=== PATIENT | female | born 1945 | race African-American/Black ===

== ENCOUNTER → 2016-07-25 | Day surgery (SDC) | payer MEDICARE, OTHER ==
[2016-07-25] VITALS (14 sets, daily range): BP systolic 114–164; BP diastolic 72–90
[~2016-07-25] VITALS: Ht 166.4 cm; Wt 88.5 kg
[~2016-07-25] MED LIST: AMLODIPINE BESY10 MG ORAL; BSS 15ml BTL ONE; BSS 500ml btl ONE; Dexamethasone 4mg/ml vial ONE; EPINEPHrine 1mg/1ml Amp ONE; Hydromorphone 0.5mg/0.5ml inj IVP PRN; KEPPRA500 M3 ORAL; LASIX20 M1 ORAL; LISINOPRIL-HCT1 EAC2 PO; LISINOPRIL20 MG ORAL; LOPRESSOR25 M1 ORAL; Lidocaine 1% MPF 10mg/ml 5ml ONE; METOPROLOL TART25 MG PO; METRONIDAZOLE500 MG ORAL; MULTIVITAMINS1 EAC2 ORAL; Midazolam 2mg/2ml Inj ONE; NORVASC10 MG ORAL; NS Irrig 1000ml ONE; PRINIVIL20 MG ORAL; Povidone-Iodine 5% opth solution ONE; Sodium Hyaluronate 14 mg/ml 0.85ml ONE; Sterile Water Irrig 1000ml IRRIG ONE; TRAMADOL HCL50 MG ORAL; fentaNYL 100 mcg/2 mL IV ONE
[2016-07-25] MEDS: Tropicamide 1% Opth Soln RIGHT EYE SCH ×3 (07:14→07:42)
[2016-07-25] MEDS: Phenylephrine 2.5% Op Soln RIGHT EYE SCH ×3 (07:15→07:42)
[2016-07-25] MEDS: Tobradex Opth Susp 2.5ml RIGHT EYE SCH ×3 (07:16→07:42)
[2016-07-25] MEDS: Gatifloxacin Opth Solution 0.5% RIGHT EYE SCH ×3 (07:17→07:43)
[2016-07-25] MEDS: Akten 3.5% 1ml Btl RIGHT EYE SCH ×3 (07:17→07:43)
--- NOTE | 2016-07-25 07:35 | Pre-Procedure Note/Attestation ---
Pre-Procedure Note/Attestation Complete Prior to Procedure Planned Procedure: right Procedure Narrative: cataract extraction with implant right eye Indications for Procedure Pre-Operative Diagnosis: cataract right eye Attestation I attest that I discussed the nature of the procedure; its benefits; risks and complications; and alternatives (and the risks and benefits of such alternatives ), prior to the procedure, with the patient (or the patient's legal licensing representative). I attest that, if there was a reasonable possibility of needing a blood transfusion, the patient (or the patient's legal licensing representative) was given the [facility] standardized written summary, pursuant to the [place] Blood Safety Act ([place] Health and Safety Code # 1645, as amended). I attest that I re-evaluated the patient just prior to the surgery and that there has been no change in the patient's H&P, except as documented below: IAN RICH Jul 25, 2016 07:35
--- NOTE | 2016-07-25 08:38 | Anethesia Preoperative Eval ---
Anesthesia Pre-op PMH/ROS General Date of Evaluation: Jul 25, 2016 Time of Evaluation: 08:15 Anesthesiologist: ANIA ASA Score: ASA 2 Mallampati Score Class I : Soft palate, uvula, fauces, pillars visible Class II: Soft palate, uvula, fauces visible Class III: Soft palate, base of uvula visible Class IV: Only hard plate visible Mallampati Classification: Class II Surgeon: LAYLA Diagnosis: CATARACT R Surgical Procedure: REMOVAL CATARACT LENS IMPLANT Anesthesia History: none Family History: no anesthesia problems Allergies: Coded Allergies: CODEINE (Verified Allergy, Mild, 02/10/10) IBUPROFEN (Verified Allergy, Mild, Rash, 03/04/12) ASPIRIN (Unverified Adverse Reaction, Unknown, 02/12/14) Uncoded Allergies: FISH (Allergy, Unknown, Shortness of Breath, , 02/12/14) SOB,HIVES Past Medical History Cardiovascular: Reports: HTN Pulmonary: Denies: COPD, SANTOS, asthma, other Gastrointestinal/Genitourinary: Denies: CRI, ESRD, GERD, other Neurologic/Psychiatric: Denies: CVA, TIA, dementia, depression/anxiety, other Endocrine: Denies: DM, hypothyroidism, other, steroids HEENT: Reports: cataract (L), cataract (R) Hematology/Immune: Denies: DVT, anemia, bleeding disorder, other Musculoskeletal/Integumentary: Denies: DDD, DJD, OA, RA, edema, other Anesthesia Pre-op Phys. Exam Physician Exam Last Vital Signs Date Time Temp Pulse Resp B/P Pulse Ox O2 Delivery O2 Flow Rate FiO2 07/25/16 07:27 97.6 67 18 147/76 97 Room Air Constitutional: NAD Neurologic: CN 2-12 intact Cardiovascular: RRR Respiratory: CTA Gastrointestinal: S/NT/ND Airway Exam Mallampati Score: Class II MO: full ROM: full Teeth: intact Dentures: no lower, no upper Anesthesia Pre-op A/P Risk Assessment & Plan Assessment: ASA2 Plan: MAC Status Change Before Surgery: No Pre-Antibiotics Given Within 1 Hr of Incision: NAVIN Burr M.D. Jul 25, 2016 08:38
--- NOTE | 2016-07-25 08:39 | Immediate Post-Op Evaluation ---
Immediate Post-Op Evalulation Immediate Post-Op Evalulation Procedure: CATARACT REMOVAL LENS IMPLANT Date of Evaluation: Jul 25, 2016 Time of Evaluation: 09:00 IV Fluids: 250 Blood Products: 0 Estimated Blood Loss: 0 Urinary Output: 0 Blood Pressure Systolic: 121 Blood Pressure Diastolic: 76 Pulse Rate: 82 Respiratory Rate: 15 O2 Sat by Pulse Oximetry: 99 Temperature (Fahrenheit): 98 Pain Score (1-10): 0 Nausea: No Vomiting: No Complications 0 Patient Status: awake, patent, none Hydration Status: adequate Given Within 1 Hr of Incision: NAVIN Burr M.D. Jul 25, 2016 08:39
--- NOTE | 2016-07-25 08:40 | 48 Hour Post Anesthesia Eval ---
Post Anesthesia Evaluation Procedure: CATARACT REMOVAL LENS IMPLANT R Date of Evaluation: Jul 25, 2016 Time of Evaluation: 12:55 Blood Pressure Systolic: 114 Pulse Rate: 60 Respiratory Rate: 12 Temperature (Fahrenheit): 98 O2 Sat by Pulse Oximetry: 99 Airway: patent Nausea: No Vomiting: No Pain Intensity: 1 Hydration Status: adequate Cardiopulmonary Status: WNL Mental Status/LOC: patient returned to baseline Post-Anesthesia Complications: 0 Follow-up care needed: ready to discharge NAVIN JORGE M.D. Jul 25, 2016 08:40
--- NOTE | 2016-07-25 08:51 | Brief Operative Note ---
Immediate Post Operative Note Operative Note Pre-op Diagnosis: cataract right eye Procedure: phacoemulsification of cataract with implant right eye Post-op Diagnosis: same as pre-op Surgeon: ian cueto Pigment Making Supervisor: none Anesthesiologist: nicholas clifton Anesthesia: MAC Specimen: none Complications: none Condition: stable Estimated Blood Loss: none Drains: none Implant(s) used?: Yes IAN CUETO Jul 25, 2016 08:51
--- NOTE | 2016-07-25 15:38 | Operative Note - Dictated ---
DATE OF OPERATION: 07/25/2016 PREOPERATIVE DIAGNOSIS: Cataract, right eye. POSTOPERATIVE DIAGNOSIS: Cataract, right eye. PROCEDURE: Phacoemulsification cataract right eye with placement of posterior chamber intraocular lens. SURGEON: Judd Mclaughlin M.D. FLOW TRADER: None. ANESTHESIA: MAC/topical. ANESTHESIOLOGIST: Dr. Ant Galdamez. INDICATION FOR PROCEDURE: Poor vision, right eye. DESCRIPTION OF FINDINGS: Nuclear sclerotic and cortical cataract, right eye. DESCRIPTION OF PROCEDURE: The patient received a topical anesthetic block consisting of 3.5% Akten eye drops. The eye was then prepped and draped in the usual manner. A lid speculum was placed. An operating Zeiss microscope was positioned. A temporal corneal groove was made with the sami blade. A SuperSharp blade made a stab incision at the 12 o'clock position. A 0.1 mL of 1% nonpreserved intracameral lidocaine was injected. Healon was instilled into the anterior chamber and a 2.5/2.8 mm trapezoidal sami blade was used to complete the temporal corneal wound. A cystotome was used to create an anterior capsular flap. Utrata forceps were used to complete the capsulorrhexis. BSS on a cannula was used to hydrodissect the nucleus. The lens nucleus phacoemulsified in a phaco-fracture technique. Remaining cortical material the I/A and the posterior capsule was polished the I/A on Cap vac. Healon was instilled into the capsular bag and anterior chamber, and an Lozano foldable one-piece posterior chamber intraocular lens model [id number], power 20.5 diopter, serial #[id number] was placed in the injector. The lens was put in the capsular bag. The I/A tip was used to remove the Healon and position the lens. The wound edge was hydrated with BSS and a blunt-tipped cannula. The wound was checked and found to be watertight. The lid speculum was removed and a drop of TobraDex and Zymaxid was placed. A clear plastic shield was taped over the eye. The patient tolerated the procedure well and left the operating room in good condition. Judd Mclaughlin M.D. [place] [place]: JASWANT JOB#: [id number] CC:
== END | disposition home or self-care (01) ==
LOC: SUR 06:31
DX: H25.11 Age-related nuclear cataract, right eye (principal); H25.011 Cortical age-related cataract, right eye; I10 Essential (primary) hypertension; D64.9 Anemia, unspecified; J45.909 Unspecified asthma, uncomplicated; G89.29 Other chronic pain; M54.9 Dorsalgia, unspecified; M41.9 Scoliosis, unspecified; Z86.73 Personal history of transient ischemic attack (TIA), and cerebral infarction without residual deficits; Z86.010 Personal history of colon polyps; Z90.710 Acquired absence of both cervix and uterus; Z79.899 Other long term (current) drug therapy; Z88.8 Allergy status to other drugs, medicaments and biological substances; Z88.6 Allergy status to analgesic agent; Z88.5 Allergy status to narcotic agent; Z91.018 Allergy to other foods
CPT/HCPCS: 66984; J0171; J1100; J2250; J2405; J3010; V2632; 94003; 94150